=== PATIENT | male | born 1950 | race Caucasian/White ===

== ENCOUNTER 2017-05-26 13:25 | Emergency (ER) | payer MEDICARE, OTHER ==
[~2017-05-26] VITALS: Ht 180.3 cm; Wt 111.1 kg
[2017-05-26] MEDS ORDERED: BUPIVACAINE 0.5% 50 ML VIAL. IJ ONE (14:00)
--- NOTE | 2017-05-26 14:26 | RAD ---
Right thumb, 3 views, 05/26/2017: History: Laceration, thumb injury There is a partially radiopaque bandage overlying the thumb. No acute fracture or dislocation is identified. There is moderate spurring at the IP joint. A soft tissue defect is noted adjacent to the MCP joint IMPRESSION: No acute bony abnormality is detected.
--- NOTE | 2017-05-26 15:32 | PHYS DOC ---
Past Medical History Past Medical History: High Cholesterol, Hypertension, Hypothyroid Past Surgical History: Cholecystectomy Alcohol Use: None Drug Use: None Adult General Chief Complaint Chief Complaint: LACERATION/AVULSION HPI HPI Patient is a 66 year old male with history of hypertension high cholesterol and hypothyroidism who presents today with left thumb laceration. Patient is right-handed. Patient states he got cut accidentally with a circular saw when it kicked back Review of Systems Review of Systems Constitutional: Denies fever or chills [] Eyes: Denies change in visual acuity, redness, or eye pain [] Musculoskeletal: Denies back pain or joint pain [] Integument: Left thumb laceration Neurologic: Denies headache, focal weakness or sensory changes [] Endocrine: Denies polyuria or polydipsia [] Current Medications Current Medications Current Medications Medications (Trade) Dose Ordered Sig/Rena Start Time Stop Time Status Last Admin Dose Admin Bupivacaine HCl (Marcaine 0.5%) 50 ml 1X ONCE 05/26/17 14:00 05/26/17 14:01 DC 05/26/17 14:12 50 ML Allergies Allergies Allergies Coded Allergies Type Severity Reaction Last Updated Verified No Known Drug Allergies 05/26/17 No Physical Exam Physical Exam Constitutional: Well developed, well nourished, no acute distress, non-toxic appearance. [] HENT: Normocephalic, atraumatic, bilateral external ears normal, oropharynx moist, no oral exudates, nose normal. [] Skin: Left ventral thumb along the MCP joint with a laceration approximately 6 cm long with obvious tendon involvement. Patient unable to flex the left thumb at the MCP joint. +2 left radial pulse. Adequate radial sensation to the left thumb. Cap refill less than 2 seconds the left thumb. Back: No tenderness, no CVA tenderness. [] Extremities: see skin Neurologic: Alert and oriented X 3, normal motor function, normal sensory function, no focal deficits noted. [] Psychologic: Affect normal, judgement normal, mood normal. [] Current Patient Data Vital Signs Vital Signs Date Time Temp Pulse Resp B/P (MAP) Pulse Ox O2 Delivery O2 Flow Rate FiO2 05/26/17 13:53 98.0 65 16 97 Room Air 98.0 EKG EKG [] Radiology/Procedures Radiology/Procedures []PROCEDURE: FINGER(S) RIGHT Right thumb, 3 views, 05/26/2017: History: Laceration, thumb injury There is a partially radiopaque bandage overlying the thumb. No acute fracture or dislocation is identified. There is moderate spurring at the IP joint. A soft tissue defect is noted adjacent to the MCP joint IMPRESSION: No acute bony abnormality is detected. DICTATED and SIGNED BY: RADHA CHAVEZ MD DATE: 05/26/17 1422 CC: RAMIRO BURDEN [employer]; NON,STAFF; UNKNOWN PCP NAME ~ Indication: Left thumb laceration Procedure: The patient was placed in the appropriate position and anesthesia around the laceration was 0.5% of bupivacaine. The laceration was explored for foreign objects, none was found, the laceration was cleaned with 500 ML of normal saline. In the laceration was closed with 2 interrupted sutures using 3. 0 Vicryl, exterior laceration was closed with 11 interrupted sutures using 5. 0 Ethilon. The wound was covered with nonstick dressing. Total repaired wound length: Approximately 6 cm long Other Items: none The patient tolerated the procedure well Complications: none Course & Med Decision Making Course & Med Decision Making Pertinent Labs and Imaging studies reviewed. (See chart for details) Patient has left thumb laceration with flexor tendon injury. Left hand x-rays interpreted by radiologist were negative for any acute findings. Consulted with Dr. Vidal who requested patient to be seen by a hand surgeon. Call Dr. Bennett's office to request consult with Dr. Whalen the office states Dr. Whalen does not come to [facility] anymore Consulted with Dr. Keely Faye hand surgeon at [facility], she requested we go ahead and close the laceration and patient can follow-up in her office on Monday at 2:30 PM for office visit and possible surgery on Monday. Patient's Tetanus are up-to-date, laceration was closed as noted in procedures. Discharged on cephalexin. Follow-up with the hand surgeon on Monday. Dragon Disclaimer Dragon Disclaimer This electronic medical record was generated, in whole or in part, using a voice recognition dictation system. Departure Departure Impression: Primary Impression: Laceration of left thumb with tendon involvement Disposition: HOME, SELF-CARE Condition: STABLE Referrals: UNKNOWN PCP NAME (PCP) Follow up with Dr. Keely Faye hand surgeon on Monday at 2:30 pm [address] [facility] [address] Phone number [phone] Patient Instructions: Laceration Care, Adult, [id number] Additional Instructions: Follow up with Dr. Keely Faye hand surgeon on Monday at 2:30 pm [address] [facility] [address] Phone number [phone] Scripts Cephalexin (CEPHALEXIN) 500 Mg Tablet 1 TAB PO QID, #40 TAB Prov: RAMIRO BURDEN APRN 05/26/17 Hydrocodone/Apap 5-325 (NORCO 5-325 TABLET) 1 Each Tablet 1 TAB PO PRN Q6HRS Y for PAIN, #30 TAB 0 Refills Prov: RAMIRO BURDEN APRN 05/26/17 Problem Qualifiers Primary Impression: Laceration of left thumb with tendon involvement Encounter type: initial encounter Qualified Codes: S61.012A - Laceration without foreign body of left thumb without damage to nail, initial encounter; S66.529A - Laceration of intrinsic muscle, fascia and tendon of unspecified finger at wrist and hand level, initial encounter RAMIRO BURDEN APRN May 26, 2017 15:31
[2017-05-26] MEDS ORDERED: CEPH500T PO (17:24)
[2017-05-26] MEDS ORDERED: HYDR-971 PO (17:24)
[2017-05-26 17:38] VITALS: BP 148/79
== END 2017-05-26 17:41 | disposition home or self-care (01) ==
LOC: ER 13:25
DX: S61.012A Laceration without foreign body of left thumb without damage to nail, initial encounter (principal); E03.9 Hypothyroidism, unspecified; E78.00 Pure hypercholesterolemia, unspecified; I10 Essential (primary) hypertension; Z90.49 Acquired absence of other specified parts of digestive tract; W27.0XXA Contact with workbench tool, initial encounter; Y93.89 Activity, other specified; Y99.8 Other external cause status; Y92.89 Other specified places as the place of occurrence of the external cause
CPT/HCPCS: 12032; 73140; 99284; J3490